=== PATIENT | male | born 1975 | race Caucasian/White ===

== ENCOUNTER 2017-02-15 00:30 | Emergency (ER) | payer SELFPAY ==
[~2017-02-15] VITALS: Ht 180.3 cm; Wt 90.9 kg
[2017-02-15 01:04] LABS: BLOOD UREA NITROGEN 21 mg/dL (7-18)
[2017-02-15 01:10] LABS: IS PT STATUS REG ER OR PRE ER? YES
[2017-02-15] MEDS ORDERED: ATENOLOL 50 MG TABLET PO ONE (01:30)
[2017-02-15 02:40] VITALS: BP 148/100
== END 2017-02-15 02:43 | disposition home or self-care (01) ==
LOC: ED 02:37
DX: I10 Essential (primary) hypertension (principal)
CPT/HCPCS: 36415; 80048; 82040; 84484; 85025; 93005; 99285